=== PATIENT | female | born 1940 | race Caucasian/White ===

== ENCOUNTER 2016-12-15 15:03 | Emergency (ER) | payer MEDICARE, BC ==
[2016-12-15] MEDS ORDERED: ASPIRIN 81 MG CHEWABLE CTB ONE (15:10)
[2016-12-15] MEDS ORDERED: ASPIRIN 81 MG CHEWABLE CTB PO ONE (15:19)
[2016-12-15] MEDS ORDERED: NITROGLYCERIN 0.4 MG TAB SL PRN (15:19)
[2016-12-15] MEDS ORDERED: SODIUM CHLORIDE 0.9% 1000ML 1,000 ML IV ONE (15:21)
[2016-12-15] MEDS ORDERED: NITROGLYCERIN 0.4 MG TAB SL ONE (15:39)
[2016-12-15 15:40] LABS: BASOPHILS % (AUTO) 1 % (0-3); EOSINOPHILS % (AUTO) 1 % (0-9); HEMATOCRIT 38 % (35-47); MEAN CORPUSCULAR HGB CONC 36.9 gm/dl (32.0-36.0); MEAN CORPUSCULAR VOLUME 86 fL (81-99); MONOCYTES % (AUTO) 6.4 % (0-12)
[2016-12-15] MEDS ORDERED: SODIUM CHLORIDE 0.9% FLUSH 10 ML SOL IV PRN (15:45)
[2016-12-15 15:56] LABS: CALCIUM 8.9 mg/dl (8.5-10.1); GLOM FILT RATE 69 mL/min (>60); POTASSIUM 3.6 mMol/L (3.5-5.1); SODIUM 137 mMol/L (136-145)
[2016-12-15 17:14] LABS: APPEARANCE,URINE Clear; BILIRUBIN,URINE NEGATIVE (NEGATIVE); COLOR,URINE Yellow; GLUCOSE, URINE (UA) NEGATIVE (NEGATIVE); KETONES,URINE NEGATIVE (NEGATIVE); LEUKOCYTE ESTERASE ,URINE 1+ (NEGATIVE); NITRATE,URINE NEGATIVE (NEGATIVE); OCCULT BLOOD,URINE NEGATIVE (NEG-TRACE); PH,URINE 6.5; UROBILINOGEN,URINE 0.2 (0.2-1.0 EU)
[2016-12-15 17:25] LABS: RBC,URINE NEG (0-3AV/HPF)
[2016-12-15 18:11] VITALS: BP 158/74; PULSE 63; RESP 20; TEMP 97.8; O2SAT 97
== END 2016-12-15 18:00 | disposition home or self-care (01) | DRG 313 ==
LOC: ED 15:03
DX: R07.9 Chest pain, unspecified (principal); N39.0 Urinary tract infection, site not specified
CPT/HCPCS: 71010; 80048; 81001; 82550; 83880; 84484; 85025; 85610; 87088; 93005; 99285